=== PATIENT | female | born 1955 | race Caucasian/White ===

== ENCOUNTER 2016-05-05 06:25 | Emergency (ER) | payer OTHER ==
[2016-05-05] MEDS ORDERED: ONDANSETRON 4 MG/2 ML VIAL IVP ONE (07:21)
[2016-05-05] MEDS ORDERED: NS 1,000 ML IV ONE (07:22)
[2016-05-05] MEDS ORDERED: KETOROLAC 30 MG/1 ML SDV IVP ONE (07:22)
--- NOTE | 2016-05-05 07:26 | EDPHY ---
H & P Time Seen by Provider: 05/05/16 07:12 HPI/ROS: CHIEF COMPLAINT: Myalgias, headache HISTORY OF PRESENT ILLNESS: 60-year-old female presents with 1 day history of myalgias and headache. Last evening she developed generalized myalgias, followed by a moderate headache. Associated with subjective fever and chills. She also has a moist and sore throat. Associated fatigue and lack of appetite. She has not taken any [id number] medications to reduce the fever or control the body aches. No shortness of breath or vomiting. She received a flu vaccination this year. REVIEW OF SYSTEMS: Eyes: No visual changes Respiratory: no shortness of breath Cardiac: No chest pain Gastrointestinal: No nausea, no vomiting, no abdominal pain Genitourinary: No hematuria, no dysuria Skin: No rash Neurological: no numbness, no weakness Psychiatric: No depression Past Medical/Surgical History: Hysterectomy Social History: Recently traveled from [place] Smoking Status: Former smoker Physical Exam: General Appearance: Alert, nontoxic, pleasant Eyes: Pupils equal and round, no conjunctival injection ENT, Mouth: Mucous membranes moist, pharyngeal erythema Neck: Normal inspection, shotty adenopathy, supple Respiratory: Lungs are clear to auscultation, no wheezing or rhonchi Cardiovascular: Regular rate and rhythm Gastrointestinal: Abdomen is soft and nontender Neurological: A&O, nonfocal exam Skin: Warm and dry, no rash Extremities: diffuse mild tenderness, no pedal edema Psychiatric: Mood and affect normal Constitutional: Initial Vital Signs Temperature (C) 37.2 C 05/05/16 06:28 Heart Rate 88 05/05/16 06:28 Respiratory Rate 16 05/05/16 06:28 Blood Pressure 140/91 H 05/05/16 06:28 O2 Sat (%) 92 05/05/16 06:28 O2 Delivery Mode Room Air Allergies/Adverse Reactions: Sulfa (Sulfonamide Antibiotics) Allergy (Verified 05/05/16 06:31) Home Medications: Medication Instructions Recorded Ondansetron Odt [Zofran Odt 4 mg 4 mg PO Q4 PRN #6 tab 05/05/16 (*)] Oseltamivir Phosphate [Tamiflu 75 75 mg PO BID #9 cap 05/05/16 mg (RX)] Medical Decision Making - Diagnostics Imaging: Chest x-ray independently reviewed by me reveals no acute disease. ED Course/Re-evaluation: IV normal saline 1 L given at patient request. Toradol 30 mg IV and Zofran 4 mg IV given. The patient feels better after these medications. Tamiflu given for influenza. There is no evidence of pneumonia or other complications related to influenza. I feel that she is safe and stable for discharge. Differential Diagnosis: Differential diagnosis includes but is not limited to pneumonia, otitis media, peritonsillar abscess, retropharyngeal abscess, meningitis. - Data Points Medications Given: Discontinued Medications Sodium Chloride (Ns) 1,000 mls @ 0 mls/hr IV ONCE ONE PRN Reason: Wide Open Stop: 05/05/16 07:23 Last Admin: 05/05/16 07:43 Dose: 1,000 mls Ketorolac Tromethamine (Toradol) 30 mg IVP EDNOW ONE Stop: 05/05/16 07:23 Last Admin: 05/05/16 07:43 Dose: 30 mg Ondansetron HCl (Zofran) 4 mg IVP EDNOW ONE Stop: 05/05/16 07:22 Last Admin: 05/05/16 07:44 Dose: 4 mg Oseltamivir Phosphate (Tamiflu) 75 mg PO EDNOW ONE Stop: 05/05/16 08:07 Last Admin: 05/05/16 08:06 Dose: 75 mg Departure - Departure Disposition: Home, Routine, Self-Care Clinical Impression: Influenza A Condition: Good Instructions: Influenza (ED) Additional Instructions: Alternate Tylenol ibuprofen every 3 hours for fever and pain control. Referrals: Iris Easton MD [Medical Doctor] - 5-7 days, if not improved Prescriptions: Ondansetron Odt [Zofran Odt 4 mg (*)] 4 mg PO Q4 PRN #6 tab PRN Reason: Nausea Oseltamivir Phosphate [Tamiflu 75 mg (RX)] 75 mg PO BID #9 cap
[2016-05-05] MEDS ORDERED: OSELTAMIVIR PHOSPHATE 75 MG CAP PO ONE (08:06)
[2016-05-05 08:30] VITALS: BP 132/78; PULSE 81; RESP 17; TEMP 99.1; O2SAT 91
== END 2016-05-05 08:30 | disposition home or self-care (01) ==
DX: J10.1 Influenza due to other identified influenza virus with other respiratory manifestations (principal); Z87.891 Personal history of nicotine dependence
CPT/HCPCS: 96374; J1885; J2405